=== PATIENT | male | born 1960 | race Caucasian/White ===

== ENCOUNTER 2019-12-07 12:48 | Emergency (ER) | payer BC, SELFPAY ==
--- NOTE | ~2019-12-07 | CT_ITS ---
EXAMINATION: CTA brain carotid DATE: 12/07/2019 14:53 INDICATION: Headache. TECHNIQUE: Computed tomographic angiography (CTA) of the head was performed without and with 100 mL O mnipaque-350 intravenous contrast. CTA of the neck was performed with intravenous contrast. Automated exposure control and iterative reconstruction technique were employed. The dose-length product was 1 860.54 mGy-cm. Maximum intensity projection and volume rendered 3D-reconstructions were created by ashlee myers technologist on a separate workstation. COMPARISON: Carotid ultrasound 08/23/2009 FINDINGS: HEAD CTA: There are scattered areas of low attenuation in the cerebral white matter. There is no intr acranial hemorrhage, acute infarction, or abnormal intracranial mass lesion. The ventricles are peace l in size. There is mucosal thickening in the paranasal sinuses. The orbits are normal. The mastoid a ir cells are normal. Left vertebral artery is dominant. There is no significant stenosis of basilar a rtery or the posterior cerebral arteries. The posterior communicating arteries are normal. There is n o significant stenosis of the intracranial internal carotid arteries or anterior or middle cerebral a rteries. Anterior communicating artery is normal. There is no aneurysm. NECK CTA: There are no pathologically enlarged lymph nodes. There is no significant stenosis of the v ertebral arteries. There is plaque in the proximal internal carotid arteries. There is 0% stenosis of the proximal right internal carotid artery relative to normal distal artery lumen diameter (NASCET c riteria). There is 0% stenosis of the proximal left internal carotid artery relative to normal distal artery lumen diameter. There is severe cervical spondylosis. IMPRESSION: 1. Mild nonspecific cerebral white matter disease, which likely represents chronic small vessel ische cristiano disease. 2. No aneurysm or significant intracranial arterial stenosis. 3. 0% stenosis of the proximal internal carotid arteries relative to normal distal artery lumen diame ters (NASCET criteria). Reviewed, dictated and finalized at location B. IMPRESSION: 1. Mild nonspecific cerebral white matter disease, which likely represents in service education teacher briana small vessel ischemic disease. 2. No aneurysm or significant intracranial arterial stenosis. 3. 0% stenosis of the proximal internal carotid arteries relative to normal dis chelsy artery lumen diameters (NASCET criteria).
--- NOTE | ~2019-12-07 | XR_ITS ---
XR chest 2V DATE: 12/07/2019 14:56 INDICATION: Dyspnea TECHNIQUE: PA and lateral views COMPARISON: None FINDINGS: Normal heart size. No hilar or mediastinal enlargement. No pulmonary infiltrate or consolid ation, pleural effusion or pulmonary vascular congestion or pneumothorax. IMPRESSION: No active cardiopulmonary disease Reviewed, dictated and finalized at location A.
[2019-12-07 12:50] VITALS: BP 153/102; PULSE 88; RESP 17; TEMP 36.7; O2SAT 98
--- NOTE | 2019-12-07 12:58 | ED.HA ---
HPI - Headache General Chief Complaint: Headache Stated Complaint: JONES X1 MONTH Time Seen by Provider: 12/07/19 12:56 Source: patient and family Mode of arrival: ambulatory Limitations: no limitations History of Present Illness HPI Narrative: Patient is a 59-year-old male who presents for evaluation of headache pain. Patient reports a one-month history of worsening, chronic headache pain, somewhat episodic in nature, at times severe, stabbing in nature on the right side of his head and over his right eye. Patient reports associated metallic-like smell with the pain. No vision changes, no difficulty with speech, no numbness in the upper or lower extremities. No difficulty with script editor strength. No difficulty walking. Patient states he has a history of precancerous lesion on his nose, no other cancer history. No weight loss. Patient has been in between primary care physicians due to insurance issues, due to patient also experiencing some shortness of breath with exertion over the past week, daughter prompted him to come to the emergency department for evaluation. Patient currently denying any fever, chills, chest pain. He does report some congestion. He denies any cough or recent sick contacts. No recent known COVID exposures. Related Data Home Medications Medication Instructions Recorded Confirmed lisinopril 20 mg PO BID 12/07/19 12/07/19 Allergies Allergy/AdvReac Type Severity Reaction Status Date / Time pneumococcal vaccine Allergy Severe HALLUCINATIONS, Verified 12/07/19 12:53 SOB prazosin Allergy Severe SOB, Verified 12/07/19 12:53 HALLUCINATIONS Review of Systems Review of Systems: Narrative: CONSTITUTIONAL: Denies fever, chills, or sweats. EYES: Denies visual changes, redness, or discharge. ENT: Reports congestion, denies sore throat CARDIOVASCULAR: Denies chest pain, palpitations, or edema. RESPIRATORY: Denies cough, reports mild shortness of breath GASTROINTESTINAL: Denies abdominal pain, nausea, vomiting, or diarrhea. GENITOURINARY: Denies dysuria or hematuria. SKIN: Denies rash or itching. MUSCULOSKELETAL: Denies back pain, joint pain, or myalgia. NEUROLOGIC: Reports headache, denies numbness, or weakness. [facility] Past Medical History Medical History Closed right hip fracture Diverticulitis Hypertension Sleep apnea Surgical History Surgical History H/O inguinal hernia repair H/O: vasectomy History of right hip replacement Social History Social History (Updated 12/07/19 @ 13:39 by Nicki Chance MD) Smoking status: Former smoker Alcohol intake: never Substance use: never Gender identity (if verbalized by the patient): Male Exam Narrative: Exam Narrative: GENERAL: Awake, alert, conversant HEAD: Normocephalic, atraumatic. EYES: 2+ PERRLA and EOMI. ENT: Nares clear, no rhinorrhea or epistaxis. Mucous membranes moist. NECK: Supple. CHEST: No respiratory distress, breathing even and non labored HEART: Regular rate, sinus rhythm ABDOMEN:Non distended, non tender EXTREMITIES: Normal range of motion. No edema. SKIN: Warm, dry, no rash. NEURO:No focal deficits. Alert and oriented x3. Finger to nose intact bilaterally. EOMs intact without nystagmus. No facial droop/asymmetry noted bilaterally. Grimace intact. Intact sensation in face. Hearing intact bilaterally. Shoulder shrug intact. Strength 5/5 bilateral upper extremities. Strength 5/5 bilateral lower extremities. Reflexes 2+ patellar. Heel to sauceda intact bilaterally. Ambulatory with a narrow base, steady gait, no ataxia. Course Vital Signs Vital signs: Vital Signs Temperature 36.7 C 12/07/19 12:50 Pulse Rate 88 12/07/19 12:50 Respiratory Rate 17 12/07/19 12:50 Blood Pressure 153/102 H 12/07/19 12:50 Pulse Oximetry 98 12/07/19 12:50 Temperature 36.7 C 12/07/19 12:50 Pulse Rate 78 12/07/19 1
--- NOTE | 2019-12-07 13:34 | ECG_ITS ---
Measurements Intervals [place] Rate: 81 P: 32 UT: 168 QRS: 7 QRSD: 96 T: 32 QT: 333 QTc: 388 Interpretive Statements SINUS RHYTHM CANNOT RULE OUT SEPTAL INFARCT, AGE INDETERMINATE BASELINE WANDER- I, II, III ABNORMAL ECG Electronically Signed On 12-07-2019 14:26:24 CDT by Kuldeep Sandoval D.O.
[2019-12-07] MEDS: ACETAMINOPHEN 500 MG TABLET 1000 MG PO (13:45)
[2019-12-07] MEDS: MAGNESIUM SULF 2 GM/WATER 50ML 2 GM/50 ML BAG IVPB (13:45)
[2019-12-07] MEDS: SODIUM CHLORIDE 0.9% IV 1,000 ML 999 ML IV CONT (13:45)
[2019-12-07 13:49] VITALS: BP 146/92; PULSE 86; RESP 16; O2SAT 98
[2019-12-07 13:49] LABS: Basophils Percent Auto 0.6 % (0.2-1.2); Eosinophils Absolute Auto 0.3 K/mm3 (0-0.3); Hematocrit 47.1 % (42.0-52.0); Hemoglobin 15.3 g/dL (14.0-18.0); Immature Granulocyte Absolute 0.03 K/mm3 (0.00-0.031); Immature Granulocyte Percent A 0.4 % (0-0.5); Lymphocytes Absolute Auto 1.64 K/mm3 (0.9-3.2); Mean Corpuscular HGB Conc 32.5 g/dl (32-36); Mean Corpuscular Hemoglobin 29.2 pg (26-34); Mean Corpuscular Volume 89.9 fl (80-100); Mean Platelet Volume 9.3 fl (7.4-10.4); Monocytes Absolute Auto 0.8 K/mm3 (0.1-0.6); Neutrophils Absolute Auto 4.1 K/mm3 (1.3-6.7); Platelet Count Result 193 k/mm3 (150-375); Red Blood Count 5.24 M/mm3 (4.6-6.20); Red Cell Distribution Width 13.1 % (11.5-14.5); White Blood Count 6.8 K/mm3 (4.5-10.0)
[2019-12-07 14:00] LABS: Prothrombin Time 12.7 Seconds (11.1-14.7)
[2019-12-07 14:01] LABS: Partial Thromboplastin Time 29.1 SECONDS (22.3-36.8)
[2019-12-07 14:04] LABS: Alanine Aminotransferase 16 U/L (4-50); Albumin Level 4.2 g/dL (3.5-5.1); Alkaline Phosphatase 80 U/L (38-126); Anion Gap 8 mmol/L (8-16); Aspartate Amino Transferase 19 U/L (17-59); Bilirubin,Total 0.5 mg/dL (0.2-1.3); Blood Urea Nitrogen 19 mg/dL (9-20); CRP 3.1 mg/dL (<1.0); Calcium 9.2 mg/dL (8.4-10.2); Carbon Dioxide 26 mmol/L (22-30); Chloride 102 mmol/L (98-107); Estimated CRCL calculation 76 ml/min; Estimated Glomerular Filt Rate > 60; Glucose 91 mg/dL (75-110); Potassium 4.1 mmol/L (3.4-5.0); Sodium 136 mmol/L (137-145)
[2019-12-07 14:13] LABS: NT Pro B Type Natriuretic Pept 25 PG/ML (5-100); Troponin I < 0.012 ng/mL (0.000-0.034)
[2019-12-07 14:59] LABS: Erythrocyte Sedimentation Rate 23 mm/hr (0-20)
[2019-12-07 15:09] VITALS: BP 135/84; PULSE 75; RESP 26; O2SAT 99
[2019-12-07 16:49] VITALS: BP 136/98; PULSE 78; RESP 22; O2SAT 96
--- NOTE | 2019-12-07 16:50 | PC.NURSE ---
Pt ambulated in hallway with 02 monitor. Pt saturation stayed between 94-95% on room air while walking. No dizziness of shortness breath noted per pt
[2019-12-07 17:59] LABS: D Dimer 0.29 ug/mL (<0.48)
[2019-12-07 18:34] VITALS: BP 173/93; PULSE 84; RESP 16; TEMP 36.6; O2SAT 94
== END 2019-12-07 18:38 | disposition home or self-care (01) ==
PROVIDERS: Emergency Provider Emergency Medicine; PCP Internal Medicine
DX: R51 Headache (principal); R06.00 Dyspnea, unspecified; I10 Essential (primary) hypertension; G47.30 Sleep apnea, unspecified; Z96.641 Presence of right artificial hip joint; Z87.891 Personal history of nicotine dependence; R90.82 White matter disease, unspecified
CPT/HCPCS: 36415; 70496; 70498; 71046; 80053; 83880; 84484; 85025; 85380; 85610; 85652; 85730; 86140; 93005; 96361; 96365; 99284; A9270; J1100; J3475; J7030; Q9967

== ENCOUNTER 2020-03-06 00:43 | Emergency (ER) | payer BC, SELFPAY ==
[2020-03-06] VITALS (9 sets, daily range): BP systolic 114–151; BP diastolic 77–107; PULSE 88–102; RESP 14–20; TEMP 36.3–36.9; O2SAT 94–100
--- NOTE | ~2020-03-06 | XR_ITS ---
EXAMINATION: XR ankle LT min 3V DATE: 03/06/2020 02:46 INDICATION: Left ankle pain. Injury. TECHNIQUE: 4 views of left ankle were obtained. COMPARISON: None. FINDINGS: Bone alignment is normal. No fracture. There is mild ankle joint osteoarthritis. There is a n enthesophyte at posterior aspect of calcaneal tuberosity. Ankle soft tissue swelling is noted. IMPRESSION: 1. Mild ankle joint osteoarthritis. Reviewed, dictated and finalized at location A. UNTS PAYABLE SUPERVISOR
--- NOTE | ~2020-03-06 | CT_ITS ---
EXAMINATION: CT cervical spine wo con DATE: 03/06/2020 02:50 INDICATION: Neck pain. TECHNIQUE: Computed tomography (CT) of the cervical spine was performed without intravenous contrast. Automated exposure control and iterative reconstruction technique were employed. The dose-length pro duct was 417.88 mGy-cm. COMPARISON: None FINDINGS: There is 2 mm anterolisthesis of C4 on C5 and C5 on C6. There is 4 degrees dextrocurvature of cervical spine. Vertebral body heights are normal. There is mildly decreased disc height at C4-C5, moderately decreased disc height at C5-C6, and severely decreased disc height at C6-C7. The followin g disc levels are specifically discussed: C2-C3: There is mild bilateral uncovertebral joint osteoarthritis. There is severe right and mild lef t facet joint osteoarthritis. There is mild right neural foraminal stenosis. There is no central miguel l stenosis. C3-C4: There is mild right and severe left uncovertebral joint osteoarthritis. There is severe bilate ral facet joint osteoarthritis. There is mild right and moderate left neural foraminal stenosis. Ther e is no central canal stenosis. C4-C5: There is severe left uncovertebral joint osteoarthritis. There is mild right and severe left f acet joint osteoarthritis. There is moderate left neural foraminal stenosis. There is no central miguel l stenosis. C5-C6: There is severe bilateral uncovertebral joint osteoarthritis. There is mild right and severe l eft facet joint osteoarthritis. There is mild right and moderate left neural foraminal stenosis. Ther e is mild central canal stenosis. C6-C7: There is severe bilateral uncovertebral joint osteoarthritis. There is severe right and modera te left facet joint osteoarthritis. There is moderate bilateral neural foraminal stenosis. There is m ild central canal stenosis. C7-T1: There is no uncovertebral joint osteoarthritis. There is severe bilateral facet joint osteoart hritis. There is mild bilateral neural foraminal stenosis. There is no central canal stenosis. IMPRESSION: 1. No fracture. 2. Severe cervical spondylosis. Reviewed, dictated and finalized at location A. AGE REPORTER
--- NOTE | ~2020-03-06 | XR_ITS ---
EXAMINATION: XR shoulder RT min 2V DATE: 03/06/2020 02:46 INDICATION: Right shoulder pain. TECHNIQUE: 4 views of right shoulder were obtained. COMPARISON: None. FINDINGS: Bone alignment is normal. No fracture. There is mild osteoarthritis of glenohumeral joint a nd acromioclavicular joint. IMPRESSION: 1. Mild polyarticular osteoarthritis. Reviewed, dictated and finalized at location A. UM FORM OPERATOR
--- NOTE | 2020-03-06 00:54 | ED.HA ---
HPI - Headache General Chief Complaint: Neuro Symptoms/Deficit <Nicki Chance MD - Last Filed: 03/06/20 07:14> Stated Complaint: SEVERE HEADACHE <Nicki Chance MD - Last Filed: 03/06/20 07:14> Time Seen by Provider: 03/06/20 00:53 <Nicki Chance MD - Last Filed: 03/06/20 07:14> Source: patient and family <Nicki Chance MD - Last Filed: 03/06/20 07:14> Mode of arrival: ambulatory <Nicki Chance MD - Last Filed: 03/06/20 07:14> Limitations: no limitations <Nicki Chance MD - Last Filed: 03/06/20 07:14> History of Present Illness HPI Narrative: Patient is a 59-year-old male with a history of chronic headaches who presents for evaluation of daily headache pain for over a month. Patient states that he has debilitating headache pain for which she has had negative work-up thus far. Patient states he had a temporal artery biopsy which was negative, he had an MRI approximately 4 days ago which preliminary results are normal without evidence of mass. Patient states due to the debilitating headache pain throughout his entire head, he is having skin sensitivity over the head as well. He states the pain is sharp and aching in nature. It is greatly affecting his quality of life, sometimes it affects his balance. Patient states that he had a fall over a week ago and is having some right shoulder and left ankle pain from that. Patient had the MRI performed after the fall and has had no other recurrent falls. Patient's primary care physician has tried numerous medications for him none of which have worked. He is not currently on any triptans or other maintenance medications. Patient denies fever or chills. No vision changes. No nausea or vomiting. Pt with temporal artery biopsy performed by Dr. Mendes at [facility] end of December. Pt also seen by Dr. Rangel with Rheumatology at [facility]. Of note, patient also reports extreme depression since the passing of his and development of these headaches. At times, patient has suicidal thoughts. Patient is not currently suicidal, states that he will drive off a bridge if his pain does not improve. Patient's daughter is quite worried that he may actually try to end his life given how debilitating the pain is been and how it is affecting his quality of life. <Nicki Chance MD - Last Filed: 03/06/20 07:14> Related Data Home Medications: Home Medications Medication Instructions Recorded Confirmed lisinopril 20 mg PO BID 12/07/19 12/07/19 gabapentin 900 mg HS 03/06/20 methotrexate sodium 03/06/20 <Nicki Chance MD - Last Filed: 03/06/20 07:14> Allergies/Adverse Reactions: Allergies Allergy/AdvReac Type Severity Reaction Status Date / Time pneumococcal vaccine Allergy Severe HALLUCINATIONS, Verified 03/06/20 00:49 SOB prazosin Allergy Severe SOB, Verified 03/06/20 00:49 HALLUCINATIONS <Nicki Chance MD - Last Filed: 03/06/20 07:14> Review of Systems Review of Systems: Narrative: CONSTITUTIONAL: Denies fever, chills, or sweats. EYES: Denies visual changes, redness, or discharge. ENT: Denies rhinorrhea, congestion, sore throat, or otalgia. CARDIOVASCULAR: Denies chest pain, palpitations, or edema. RESPIRATORY: Denies cough or dyspnea. GASTROINTESTINAL: Denies abdominal pain, nausea, vomiting, or diarrhea. GENITOURINARY: Denies dysuria or hematuria. SKIN: Denies rash or itching. MUSCULOSKELETAL: Denies back pain, joint pain, or myalgia. NEUROLOGIC: Reports headache pain without numbness or weakness PSYCHIATRIC: Denies anxiety, reports that the chronic headache pain is greatly affecting his quality of life, causing depression, has made him contemplate suicide, no plan <Nicki Chance MD - Last Filed: 03/06/20 07:14> [facility] Past Medical History Medical History: Medical History Chronic headache Closed right hip fracture Divert
--- NOTE | 2020-03-06 01:24 | PC.NURSE ---
Pt moderate risk for self harm per [place] scale. MD notified. Pts suicidal ideation is situational due to his chronic headaches. No SI precaution interventions at this time per MD. Will continue to reassess.
[2020-03-06] MEDS: SODIUM CHLORIDE 0.9% IV 1,000 ML 999 ML IV CONT (01:31)
[2020-03-06] MEDS: diphenhydrAMINE HCl INJ 50 MG/ML VIAL 25 MG IV PUSH (01:32)
[2020-03-06] MEDS: METOCLOPRAMIDE HCL INJ 10 MG/2 ML VIAL IV PUSH (01:32)
[2020-03-06] MEDS: KETOROLAC 15 MG/ML VIAL (*BKC) IV PUSH (01:32)
[2020-03-06 01:42] LABS: Basophils Percent Auto 0.2 % (0.2-1.2); Eosinophils Absolute Auto 0.2 K/mm3 (0-0.3); Eosinophils Percent Auto 1.5 % (0-4.4); Hematocrit 42.2 % (42.0-52.0); Hemoglobin 13.7 g/dL (14.0-18.0); Immature Granulocyte Percent A 0.8 % (0-0.5); Lymphocytes Percent Auto 8.2 % (18.3-44.2); Mean Corpuscular HGB Conc 32.5 g/dl (32-36); Mean Corpuscular Hemoglobin 29.9 pg (26-34); Mean Corpuscular Volume 92.1 fl (80-100); Mean Platelet Volume 8.7 fl (7.4-10.4); Monocytes Absolute Auto 1.2 K/mm3 (0.1-0.6); Neutrophils Absolute Auto 9.6 K/mm3 (1.3-6.7); Neutrophils Percent Auto 79.3 % (45.5-73.1); Platelet Count Result 230 k/mm3 (150-375); Red Blood Count 4.58 M/mm3 (4.6-6.20); Red Cell Distribution Width 15.7 % (11.5-14.5); White Blood Count 12.2 K/mm3 (4.5-10.0)
[2020-03-06] MEDS: MAGNESIUM SULF 2 GM/WATER 50ML 2 GM/50 ML BAG IVPB (01:55)
[2020-03-06 01:58] LABS: Anion Gap 8 mmol/L (8-16); Blood Urea Nitrogen 26 mg/dL (9-20); Calcium 10.1 mg/dL (8.4-10.2); Carbon Dioxide 32 mmol/L (22-30); Chloride 96 mmol/L (98-107); Estimated CRCL calculation 69 ml/min; Estimated Glomerular Filt Rate > 60; Glucose 126 mg/dL (75-110); Potassium 4.4 mmol/L (3.4-5.0); Sodium 136 mmol/L (137-145)
[2020-03-06 03:50] LABS: Thyroid Stimulating Hormone 0.811 uIU/mL (0.465-4.680)
[2020-03-06 04:58] LABS: Add Urine Microscopic? NO; Appearance Urine Clear (Clear); Bilirubin Urine Negative (Negative); Blood Urine Negative (Negative); Color Urine Yellow (Yellow); Glucose Urine UA Negative (Negative); Ketones Urine Negative (Negative); Leukocyte Esterase Ur Negative LEU/UL (Negative); Nitrate Urine Negative (Negative); Protein Urine Negative (Negative); Specific Grav Ur 1.016 (1.001-1.035); Urobilinogen Urine Negative mg/dL (<2.0)
[2020-03-06 05:17] LABS: Amphetamine Screen Urine Negative (Negative); Barbiturate Screen Urine Negative (Negative); Benzodiazepines Screen Urine Negative (Negative); Cannabinoid Screen Urine Negative (Negative); Cocaine Screen Urine Negative (Negative); Methadone Screen Urine Negative (Negative); Opiate Screen Urine Negative (Negative); Phencyclidine Screen Urine Negative (Negative)
== END 2020-03-06 10:14 | disposition home or self-care (01) ==
PROVIDERS: Emergency Medicine; Emergency Provider Emergency Medicine; PCP Internal Medicine
DX: G44.59 Other complicated headache syndrome (principal); M79.2 Neuralgia and neuritis, unspecified; G47.30 Sleep apnea, unspecified; Z96.641 Presence of right artificial hip joint
CPT/HCPCS: 36415; 72125; 73030; 73610; 80048; 80307; 81003; 84443; 85025; 96365; 96367; 96375; 99284; A9270; J0131; J1100; J1200; J1885; J2765; J3475; J7030